=== PATIENT | male | born 2000 | race Caucasian/White ===

== ENCOUNTER 2020-08-29 16:26 | Emergency (ER) | payer OTHER, SELFPAY ==
[~2020-08-29] VITALS: Ht 185.4 cm; Wt 81.6 kg
[2020-08-29 16:37] VITALS: BP_SYST 137
[2020-08-29 17:19] LABS: STREPTOCOCCUS A SCREEN (RAPID) NEGATIVE (NEGATIVE)
[2020-08-29 17:37] LABS: MONOTEST NEGATIVE (NEGATIVE)
[2020-08-29] MEDS ORDERED: PRED20TA PO (18:11)
[2020-08-29] MEDS ORDERED: IBUP-1971 PO (18:11)
[2020-08-29] MEDS ORDERED: ZIT250 PO (18:11)
[2020-08-29 18:27] VITALS: BP_SYST 137
== END 2020-08-29 18:29 | disposition home or self-care (01) ==
LOC: SED 16:26
DX: U07.1 COVID-19 (principal); J02.9 Acute pharyngitis, unspecified
CPT/HCPCS: 36415; 86308-TC; 86403; 87081; 99283

== ENCOUNTER → 2021-12-12 | Emergency (ER) | payer OTHER ==
[~2021-12-12] VITALS: Ht 185.4 cm; Wt 81.6 kg
[~2021-12-12] MED LIST: IBUP-1971 PO; PRED20TA PO; ZIT250 PO
[2021-12-12 20:49] VITALS: BP_SYST 130
--- NOTE | 2021-12-12 20:53 | NUR ---
PT HERE C/O SORETHROAT X5 DAYS AND FEVER 2 DAYS AGO. DENIES COUGH. PT STATED THAT IT HURTS TO SWALLOW PMH:DENIES PT AAO X4, NO SOB NOTED AND NOT IN ANY DISTRESS.
--- NOTE | 2021-12-13 00:57 | NUR ---
Patient left without being seen.
== END | disposition left against medical advice (07) ==
LOC: SED 19:41
DX: J02.9 Acute pharyngitis, unspecified (principal); R50.9 Fever, unspecified; Z53.21 Procedure and treatment not carried out due to patient leaving prior to being seen by health care provider